=== PATIENT | female | born 1965 | race Caucasian/White ===

== ENCOUNTER → 2017-05-22 | Outpatient (CLI) | payer OTHER ==
--- NOTE | 2017-05-22 10:53 | CT ---
EXAMINATION TYPE: CT cervical spine wo con DATE OF EXAM: 05/22/2017 COMPARISON: NONE HISTORY: Sprain of ligaments of cervical spine. Neck pain since injury [address] DLP: 339.3 mGycm. Automated Exposure Control for Dose Reduction was Utilized. TECHNIQUE: CT scan of the cervical spine is obtained without contrast, axial images are obtained, sa gittal and coronal reformatted images are also reviewed. FINDINGS: Cervical spine is visualized in its entirety from C1 through upper thoracic levels, demonst rates straightened alignment without evidence of acute fracture or dislocation. Prevertebral soft ti ssue appears within normal limits. The C1-C2 articulation is within normal limits on the coronal kathy ges. Vertebral body heights are maintained. There is mild to moderate disc space narrowing and spurring at C6-C7 level. Posterior disc herniation is seen at this level on sagittal images. Review of axial images shows left-sided uncovertebral facet degenerative changes C3-C4 level without significant neural foraminal narrowing and C4-C5 level with similar findings. Axial images at C5-C6 level show left-sided uncovertebral facet degenerative changes causing advanced left-sided neural foraminal narrowing on axial image 45. Axial images at C6-C7 level show posterior spur disc complex effacing anterior thecal sac and causing moderate right greater than left neural foraminal narrowing. Axial images at C7-T1 level are felt within normal limits. Thyroid gland is felt within normal limits. There is mild to moderate apical scarring bilaterally in both lungs. IMPRESSION: There is no acute fracture or dislocation evident in the cervical spine.
== END | disposition home or self-care (01) ==
LOC: RADCTMAIN 09:57
PROVIDERS: ATTEND Emergency Medicine
DX: S13.4XXA Sprain of ligaments of cervical spine, initial encounter (principal)
CPT/HCPCS: 72125